=== PATIENT | female | born 1960 | race Caucasian/White ===

== ENCOUNTER 2024-12-03 15:39 | Emergency (ER) | payer MEDICARE ==
[2024-12-03] MEDS: cefTRIAXone 1 GM, Lidocaine 1% 2.1 ML IM ONE (17:32)
== END 2024-12-03 17:35 | disposition home or self-care (01) ==
LOC: JD.ED 15:39
DX: K57.20 Diverticulitis of large intestine with perforation and abscess without bleeding (principal); I12.9 Hypertensive chronic kidney disease with stage 1 through stage 4 chronic kidney disease, or unspecified chronic kidney disease; E11.22 Type 2 diabetes mellitus with diabetic chronic kidney disease; N18.9 Chronic kidney disease, unspecified; Z79.899 Other long term (current) drug therapy; Z88.2 Allergy status to sulfonamides; Z88.8 Allergy status to other drugs, medicaments and biological substances; Z91.013 Allergy to seafood
CPT/HCPCS: 96372; 99283; J0696; J2003; 36415; 80053; 85025; 87040